=== PATIENT | male | born 1990 | race American Indian/Alaskan Native ===

== ENCOUNTER 2018-05-28 08:00 | Emergency (ER) | payer MEDICAID ==
[2018-05-28] MEDS ORDERED: Ketorolac 30 MG/ML SDV IVPUSH ONE (08:09)
[2018-05-28] MEDS ORDERED: methylPREDNISolone Sodium Succinate 125 MG/2 ML SDV IVPUSH ONE (08:09)
--- NOTE | 2018-05-28 08:11 | EDM.PDOC ---
ED HPI GENERAL MEDICAL PROBLEM - General Chief Complaint: ENT Problem Stated Complaint: SORE THROAT, CANT TALK, TROUBLE BREATHING Time Seen by Provider: 05/28/18 08:05 Source of Information: Reports: Patient History Limitations: Reports: No Limitations - History of Present Illness INITIAL COMMENTS - FREE TEXT/NARRATIVE: 28-year-old male who was had a sore throat for the last several days, intermittent fevers and cough. Last evening his throat hurt on the right side, today significant pain on the left side with swelling. He feels the back of his throat is edematous and swollen and is having trouble breathing. Onset: Gradual (Over the past several days) Improves with: Reports: None Associated Symptoms: Reports: Fever/Chills, Malaise, Shortness of Breath. Denies: Chest Pain, Cough, Nausea/Vomiting Throat Pain Score (Numeric/FACES): 10 - Related Data Allergies Allergy/AdvReac Type Severity Reaction Status Date / Time No Known Allergies Allergy Verified 05/28/18 08:15 Home Meds: Home Meds NK [No Known Home Meds] 01/02/13 [History] Past Medical History - Past Health History Medical/Surgical History: Denies Medical/Surgical History Musculoskeletal History: Reports: Fracture Other Musculoskeletal History: finger wrist - Infectious Disease History Infectious Disease History: Reports: Chicken Pox - Past Surgical History GI Surgical History: Reports: Cholecystectomy Social & Family History - Caffeine Use Caffeine Use: Reports: Soda - Living Situation & Occupation Occupation: Employed ED ROS GENERAL - Review of Systems Review Of Systems: See Below Constitutional: Reports: Fever, Malaise, Decreased Appetite HEENT: Reports: Throat Pain. Denies: Ear Pain, Rhinitis Respiratory: Reports: Shortness of Breath. Denies: Cough Cardiovascular: Denies: Chest Pain GI/Abdominal: Denies: Nausea, Vomiting Skin: Reports: No Symptoms Neurological: Denies: Headache ED EXAM, GENERAL - Physical Exam Exam: See Below Exam Limited By: No Limitations General Appearance: Alert, Mild Distress (Significant pharyngeal erythema and swelling is causing a sensation of upper airway obstruction, causing the patient to be very uncomfortable and anxious) Eye Exam: Bilateral Eye: Normal Inspection Ears: Normal TMs Throat/Mouth: Other (Diffuse significant erythema and edema of the posterior pharynx including the uvula) Head: Atraumatic Neck: Lymphadenopathy (L) (Tender adenopathy of the left submandibular area is present) Course - Vital Signs Last Recorded V/S: Last Vital Signs Temp 98.4 F 05/28/18 11:04 Pulse 103 H 05/28/18 11:04 Resp 16 05/28/18 11:04 BP 139/93 H 05/28/18 11:04 Pulse Ox 96 05/28/18 11:04 - Orders/Labs/Meds Labs: Laboratory Tests 05/28/18 05/28/18 05/28/18 Range/Units 08:10 08:10 08:10 WBC 20.3 H (4.5-11.0) K/uL RBC 5.09 (4.30-5.90) M/uL Hgb 16.5 H (12.0-15.0) g/dL Hct 48.1 (40.0-54.0) % MCV 95 (80-98) fL MCH 32 H (27-31) pg MCHC 34 (32-36) % Plt Count 365 (150-400) K/uL Neut % (Auto) 73 H (36-66) % Lymph % (Auto) 12 L (24-44) % Crosby % (Auto) 13 H (2-6) % Eos % (Auto) 1 L (2-4) % Baso % (Auto) 1 (0-1) % Sodium 137 L (140-148) mmol/L Potassium 3.5 L (3.6-5.2) mmol/L Chloride 100 (100-108) mmol/L Carbon Dioxide 23 (21-32) mmol/L Anion Gap 17.5 H (5.0-14.0) mmol/L BUN 5 L (7-18) mg/dL Creatinine 0.7 L (0.8-1.3) mg/dL Est Cr Clr Drug Dosing 169.37 mL/min Estimated GFR (MDRD) > 60 (>60) Glucose 123 H (74-106) mg/dL Calcium 8.7 (8.5-10.1) mg/dL Total Bilirubin 0.8 (0.2-1.0) mg/dL AST 102 H (15-37) U/L ALT 157 H (12-78) U/L Alkaline Phosphatase 132 H (46-116) U/L Total Protein 8.8 H (6.4-8.2) g/dL Albumin 3.4 (3.4-5.0) g/dL Globulin 5.4 H (2.3-3.5) g/dL Albumin/Globulin Ratio 0.6 L (1.2-2.2) Monoscreen Negative (NEGATIVE) Meds: Medications Discontinued Medications Generic Name Dose Route Start Last Admin Trade Name Freq PRN Reason Stop Dose Admin Sodium Chloride 1,000 mls @ 500 mls/hr 05/28/18 08:15 05/28/18 08:27 Normal Saline IV 500 mls/hr ASDIRECTED CARMELITA Administration Ampicillin Sodium/Sulbactam 100 mls @ 200 mls/hr 05/28/18 08:54 05/28/18 09: 07 Sodium 3 gm/ Sodium Chloride IV 05/28/18 09:23 200 mls/hr ONETIME ONE Administration Sodium Chloride 70 mls @ 3 mls/sec 05/28/18 10:15 05/28/18 10:13 Normal Saline IV 3 mls/sec ASDIRECTED CARMELITA Administration Iopamidol 100 ml 05/28/18 10:01 05/28/18 10:13 Isovue-300 (61%) IV 05/29/18 10:02 100 ml . DIRECTED PRN Administration RADIOLOGY EXAM Ketorolac Tromethamine 30 mg 05/28/18 08:09 05/28/18 08:29 Toradol IVPUSH 05/28/18 08:10 30 mg ONETIME ONE Administration Methylprednisolone Sodium Succinate 125 mg 05/28/18 08:09 05/28/18 08:27 Solu-Medrol IVPUSH 05/28/18 08:10 125 mg ONETIME ONE Administration Sodium Chloride 10 ml 05/28/18 10:01 05/28/18 10:12 Saline Flush FLUSH 10 ml ONETIME PRN Administration per radiology protocol - Re-Assessments/Exams Free Text/Narrative Re-Assessment/Exam: 05/28/18 09:00 CBC, CMP, Monospot and rapid strep were obtained. White count was 20,000, Monospot was negative but strep was positive. Patient was given 125 mg of IV Solu-Medrol, 3 g of IV Unasyn and 30 mg of IV Toradol. CT of the neck with contrast will be obtained to rule out significant peritonsillar abscess. 05/28/18 11:00 CT confirmed in intratonsillar abscess on the left up to 2.3 cm. This was discussed with ENT on-call in [place] and it was recommended he be seen. Patient is feeling better after the medications, he'll be transported by private car. He is going directly to [facility] emergency room where they can page Dr. Viera. Departure - Departure Time of Disposition: 11:19 Disposition: DC/Tfer to Other 70 Condition: Fair Clinical Impression: Tonsillar abscess - Discharge Information Instructions: Peritonsillar Abscess, [id number] Referrals: PCP,None [Primary Care Provider] - Forms: ED Department Discharge Care Plan Goals: Directly to the emergency room at [facility] himself [place]. Nothing to eat or drink before being seen in [place].
[2018-05-28] MEDS ORDERED: Sodium Chloride 0.9% 1,000 ML IV SCH (08:15)
[2018-05-28] MEDS ORDERED: Ampicillin/Sulbactam Na 3 GM in Sodium Chloride 0.9% 100 ML IV ONE (08:54)
[2018-05-28] MEDS ORDERED: Sodium Chloride 0.9% 10 ML Syringe FLUSH PRN (10:01)
[2018-05-28] MEDS ORDERED: Iopamidol 612 MG/ML 100 ML Bottle IV PRN (10:01)
--- NOTE | 2018-05-28 10:45 | CRLCT ---
INDICATION: Assess tonsillar abscess. TECHNIQUE: Contrast-enhanced neck CT. COMPARISON: None. FINDINGS: Asymmetrically larger left tonsil relative to the right with a bi lobed region of decreased attenuation within the left tonsil, measuring approximately 1.3 x 2.3 cm, image 25 series 3. The right tonsil is also slightly enlarged but less so without an abscess. There are numerous small bilateral cervical lymph nodes. Although not big or bulky, they may be reactive. The parotid and submandibular salivary glands are within normal limits. The included lung apices and medial clavicular heads are within normal limits. C1 through the upper aspect of T3 are within normal limits. The included paranasal sinuses and mastoid air cells are within normal limits. The included intracranial structures are grossly unremarkable. IMPRESSION: 1. Enlarged left tonsil relative to the right with an area of decreased attenuation most compatible with an intra tonsillar abscess measuring up to 2.3 cm. 2. Few mildly reactive enlarged cervical lymph nodes. 3. Clear lung apices. Normal thyroid gland. Please note that all CT scans at this facility use dose modulation, iterative reconstruction, and/or weight-based dosing when appropriate to reduce radiation dose to as low as reasonably achievable. Dictated by Efrain Cisneros MD @ May 28 2018 10:35AM Signed by Dr. Efrain Cisneros @ May 28 2018 10:43AM
[2018-05-28 11:04] VITALS: BP 139/93
== END 2018-05-28 11:19 | disposition other institution (70) ==
LOC: JP.ED 08:00
DX: J36 Peritonsillar abscess (principal)
CPT/HCPCS: 36415; 70491; 80053; 85025; 86308; 87430; 96361; 96365; 96375; 99284; J0295; J1885; J2930; J7030; Q9967

== ENCOUNTER 2019-03-20 14:14 | Emergency (ER) | payer MEDICAID ==
[2019-03-20] MEDS ORDERED: Ondansetron 4 MG/2 ML SDV IVPUSH ONE (15:06)
[2019-03-20] MEDS ORDERED: Sodium Chloride 0.9% 1,000 ML IV SCH (15:15)
--- NOTE | 2019-03-20 15:32 | EDM.PDOC ---
ED HPI GENERAL MEDICAL PROBLEM - General Chief Complaint: Gastrointestinal Problem Stated Complaint: SKIN COLOR IS YELLOW Time Seen by Provider: 03/20/19 14:45 Source of Information: Reports: Patient, Family History Limitations: Reports: No Limitations - History of Present Illness INITIAL COMMENTS - FREE TEXT/NARRATIVE: 28-year-old male, chronic alcohol abuse, presents with daily nausea and vomiting , generalized malaise, tremor, and his family thinks he looks jaundiced. No fevers or chills. Initially when he arrived he was feeling fairly good but started having emesis shortly after arrival, there was a small amount of blood in the emesis. Denies any abdominal pain. Onset: Unknown/Unsure Associated Symptoms: Reports: Loss of Appetite, Malaise, Nausea/Vomiting, Weakness. Denies: Chest Pain, Cough - Related Data Allergies Allergy/AdvReac Type Severity Reaction Status Date / Time No Known Allergies Allergy Verified 05/28/18 08:15 Home Meds: Home Meds NK [No Known Home Meds] 01/02/13 [History] Past Medical History - Past Health History Medical/Surgical History: Denies Medical/Surgical History Musculoskeletal History: Reports: Fracture Other Musculoskeletal History: finger wrist - Infectious Disease History Infectious Disease History: Reports: Chicken Pox - Past Surgical History HEENT Surgical History: Reports: Other (See Below) Other HEENT Surgeries/Procedures: Tonsilar abcess. GI Surgical History: Reports: Cholecystectomy Social & Family History - Tobacco Use Years of Tobacco use: 15 Packs/Tins Daily: 0.5 - Caffeine Use Caffeine Use: Reports: Energy Drinks, Soda Other Caffeine Use: 1 energy drink, 3 sodas. - Alcohol Use Days Per Week of Alcohol Use: 7 Number of Drinks Per Day: 7 Total Drinks Per Week: 49 Date of Last Drink: 03/20/19 - Recreational Drug Use Recreational Drug Use: No - Living Situation & Occupation Occupation: Employed ED ROS GENERAL - Review of Systems Review Of Systems: See Below Constitutional: Reports: Malaise, Decreased Appetite. Denies: Fever, Chills HEENT: Denies: Vision Change Respiratory: Denies: Shortness of Breath Cardiovascular: Denies: Chest Pain GI/Abdominal: Reports: Nausea, Vomiting. Denies: Abdominal Pain, Diarrhea Skin: Reports: Pallor Neurological: Denies: Headache Psychiatric: Reports: No Symptoms ED EXAM, GENERAL - Physical Exam Exam: See Below Exam Limited By: No Limitations General Appearance: Alert, No Apparent Distress Eye Exam: Bilateral Eye: Other (Sclera does appear pale, likely jaundiced) Respiratory/Chest: No Respiratory Distress, Lungs Clear Cardiovascular: Regular Rate, Rhythm, Tachycardia GI/Abdominal: Soft, Non-Tender Neurological: Alert, Oriented Skin Exam: Other (Skin looks pale and possibly jaundiced) Course - Vital Signs Last Recorded V/S: Last Vital Signs Temp 98.2 F 03/20/19 17:33 Pulse 118 H 03/20/19 17:33 Resp 14 03/20/19 17:33 BP 147/70 H 03/20/19 17:33 Pulse Ox 97 03/20/19 17:33 - Orders/Labs/Meds Labs: Laboratory Tests 03/20/19 03/20/19 03/20/19 Range/Units 15:30 15:30 15:30 WBC 20.8 H (4.5-11.0) K/uL RBC 3.58 L (4.30-5.90) M/uL Hgb 12.6 D (12.0-15.0) g/dL Hct 36.6 L (40.0-54.0) % MCV 102 H (80-98) fL MCH 35 H (27-31) pg MCHC 34 (32-36) % Plt Count 309 (150-400) K/uL Add Manual Diff Yes Neutrophils % (Manual) 78 H (36-66) % Band Neutrophils % 6 (5-11) % Lymphocytes % (Manual) 11 L (24-44) % Monocytes % (Manual) 3 (2-6) % Eosinophils % (Manual) 2 (2-4) % PT (9.5-12.0) sec INR (0.80-1.20) Sodium 130 L (140-148) mmol/L Potassium 3.5 L (3.6-5.2) mmol/L Chloride 91 L (100-108) mmol/L Carbon Dioxide 27 (21-32) mmol/L Anion Gap 15.5 H (5.0-14.0) mmol/L BUN 3 L (7-18) mg/dL Creatinine 0.7 L (0.8-1.3) mg/dL Est Cr Clr Drug Dosing 164.35 mL/min Estimated GFR (MDRD) > 60 (>60) Glucose 127 H (74-106) mg/dL Calcium 7.6 L (8.5-10.1) mg/dL Total Bilirubin 21.8 H D (0.2-1.0) mg/dL AST 170 H (15-37) U/L ALT 36 D (12-78) U/L Alkaline Phosphatase 208 H (46-116) U/L Total Protein 9.3 H (6.4-8.2) g/dL Albumin 1.8 L (3.4-5.0) g/dL Globulin 7.5 H (2.3-3.5) g/dL Albumin/Globulin Ratio 0.2 L (1.2-2.2) Amylase 15 L (25-115) U/L Lipase 162 (73-393) U/L Ethyl Alcohol 71 mg/dL 03/20/19 Range/Units 16:33 WBC (4.5-11.0) K/uL RBC (4.30-5.90) M/uL Hgb (12.0-15.0) g/dL Hct (40.0-54.0) % MCV (80-98) fL MCH (27-31) pg MCHC (32-36) % Plt Count (150-400) K/uL Add Manual Diff Neutrophils % (Manual) (36-66) % Band Neutrophils % (5-11) % Lymphocytes % (Manual) (24-44) % Monocytes % (Manual) (2-6) % Eosinophils % (Manual) (2-4) % PT 22.5 H (9.5-12.0) sec INR 2.18 H (0.80-1.20) Sodium (140-148) mmol/L Potassium (3.6-5.2) mmol/L Chloride (100-108) mmol/L Carbon Dioxide (21-32) mmol/L Anion Gap (5.0-14.0) mmol/L BUN (7-18) mg/dL Creatinine (0.8-1.3) mg/dL Est Cr Clr Drug Dosing mL/min Estimated GFR (MDRD) (>60) Glucose (74-106) mg/dL Calcium (8.5-10.1) mg/dL Total Bilirubin (0.2-1.0) mg/dL AST (15-37) U/L ALT (12-78) U/L Alkaline Phosphatase (46-116) U/L Total Protein (6.4-8.2) g/dL Albumin (3.4-5.0) g/dL Globulin (2.3-3.5) g/dL Albumin/Globulin Ratio (1.2-2.2) Amylase (25-115) U/L Lipase (73-393) U/L Ethyl Alcohol mg/dL Meds: Medications Discontinued Medications Generic Name Dose Route Start Last Admin Trade Name Aureliano PRN Reason Stop Dose Admin Sodium Chloride 1,000 mls @ 1,000 mls/hr 03/20/19 15:15 03/20/19 15:20 Normal Saline IV 1,000 mls/hr ASDIRECTED CARMELITA Administration Multivitamins/Minerals 10 ml/ 1,017.2 mls @ 500 mls/hr 03/20/19 17:15 17:27 Thiamine HCl 100 mg/ Folic IV 03/20/19 19:17 500 mls/hr Acid 1 mg/ Magnesium Sulfate 3 ASDIRECTED ONE Administration gm/ Sodium Chloride Ondansetron HCl 4 mg 03/20/19 15:06 03/20/19 15:18 Zofran IVPUSH 03/20/19 15:07 4 mg ONETIME ONE Administration - Re-Assessments/Exams Free Text/Narrative Re-Assessment/Exam: 03/20/19 16:31 EtOH is 0.07, bilirubin is 21.8. 03/20/19 17:09 Bilirubin level was discussed with our hospitalist service and it was recommended he be transferred to gastroenterology. After his first liter of fluid, a banana bag was initiated. INR was added, it was 2.1. Dr. Allan Arellano, emergency services at [facility] in [place] kindly agreed to accept the patient in transfer. Departure - Departure Time of Disposition: 18:19 Disposition: DC/Tfer to Other Clinical Impression: Alcoholic hepatitis Qualifiers: Ascites presence: unspecified Qualified Code(s): K70.10 - Alcoholic hepatitis without ascites - Discharge Information Referrals: PCP,None [Primary Care Provider] - Forms: ED Department Discharge Care Plan Goals: Patient will will be transferred to [facility] for gastroenterology care and evaluation for alcoholic hepatitis with severe hyperbilirubinemia. Sepsis Event Note - Evaluation Sepsis Screening Result: No Definite Risk - Focused Exam Date Exam was Performed: 03/21/19 Time Exam was Performed: 07:10
[2019-03-20] MEDS ORDERED: MVI, Adult with Vitamin K 10 ML, Thiamine 100 MG, Folic Acid 1 MG, Magnesium Sulfate 3 ... IV SCH ×5 (16:30)
[2019-03-20] MEDS ORDERED: MVI, Adult with Vitamin K 10 ML, Thiamine 100 MG, Folic Acid 1 MG, Magnesium Sulfate 3 ... IV ONE ×5 (17:15)
[2019-03-20 17:35] VITALS: BP 147/70; PULSE 118
== END 2019-03-20 18:19 | disposition other institution (70) ==
LOC: JP.ED 14:14
DX: K70.10 Alcoholic hepatitis without ascites (principal)
CPT/HCPCS: 36415; 80053; 80320; 82150; 83690; 85025; 85610; 96361; 96365; 96375; 99285; J2405; J3411; J3475; J7030; G0480; J3490

== ENCOUNTER 2019-06-24 18:09 | Emergency (ER) | payer MEDICAID ==
--- NOTE | 2019-06-24 19:09 | EDM.PDOC ---
ED HPI GENERAL MEDICAL PROBLEM - General Chief Complaint: General Stated Complaint: MEDICAL VIA [facility]TH Time Seen by Provider: 06/24/19 19:00 Source of Information: Reports: Patient History Limitations: Reports: No Limitations - History of Present Illness INITIAL COMMENTS - FREE TEXT/NARRATIVE: This is a 29-year-old male with history of alcohol use disorder, liver cirrhosis , anemia who presents with concerns of generalized pain, edema, and difficulty breathing. Is not entirely clear what acute issue brought him to the ED tonight , he presents at the urging of his significant other. He is primarily concerned of whole body pain, particularly pain in the right upper quadrant. He has some difficulty breathing which he attributes to his ascites. He has had no fevers or chills. He has whole-body edema which has been increasing, he also notes decreased urine output over the last couple weeks. He has been hospitalized intermittently in the last couple months and required blood transfusion, it is a concern of his significant other that he may need repeat transfusion tonight. The patient reports that he has been sober since March with the exception of a red wine drink last night which she thought may help his health. He reports that he has been worked up for transplant at the [facility] previously, he is not a candidate for this. - Related Data Allergies Allergy/AdvReac Type Severity Reaction Status Date / Time No Known Allergies Allergy Verified 06/24/19 18:32 Home Meds: Home Meds Folic Acid 1 mg PO DAILY 05/20/19 [History] Furosemide [Lasix] 40 mg PO BID 05/20/19 [History] Midodrine 10 mg PO TIDAC 05/20/19 [History] Potassium Chloride 20 meq PO DAILY 05/20/19 [History] Thiamine HCl 100 mg PO DAILY 05/20/19 [History] Past Medical History - Past Health History Medical/Surgical History: Denies Medical/Surgical History Musculoskeletal History: Reports: Fracture Other Musculoskeletal History: finger wrist - Infectious Disease History Infectious Disease History: Reports: Chicken Pox - Past Surgical History HEENT Surgical History: Reports: Other (See Below) Other HEENT Surgeries/Procedures: Tonsilar abcess. GI Surgical History: Reports: Cholecystectomy, Other (See Below) Other GI Surgeries/Procedures: acute liver failure Social & Family History - Caffeine Use Caffeine Use: Reports: Energy Drinks, Soda Other Caffeine Use: 1 energy drink, 3 sodas. - Living Situation & Occupation Occupation: Employed ED ROS GENERAL - Review of Systems Review Of Systems: See Below Constitutional: Reports: No Symptoms HEENT: Reports: No Symptoms Respiratory: Reports: Shortness of Breath Cardiovascular: Reports: Edema Endocrine: Reports: No Symptoms GI/Abdominal: Reports: Abdominal Pain : Reports: No Symptoms Musculoskeletal: Reports: No Symptoms Skin: Reports: No Symptoms Neurological: Reports: No Symptoms Psychiatric: Reports: No Symptoms Hematologic/Lymphatic: Reports: No Symptoms Immunologic: Reports: No Symptoms ED EXAM, GENERAL - Physical Exam Exam: See Below Exam Limited By: No Limitations General Appearance: Alert, No Apparent Distress Ears: Normal External Exam Nose: Normal Inspection Throat/Mouth: Normal Inspection Head: Atraumatic, Normocephalic Neck: Normal Inspection Respiratory/Chest: No Respiratory Distress, Lungs Clear Cardiovascular: Regular Rate, Rhythm GI/Abdominal: Soft, Distended (soft distended). No: Tender Back Exam: Normal Inspection Extremities: Pedal Edema (4+ pitting edema thoughout the extremities) Neurological: Alert, Oriented Psychiatric: Normal Affect Skin Exam: Warm, Dry Course - Vital Signs Last Recorded V/S: Last Vital Signs Temp 36.5 C 06/24/19 20:26 Pulse 116 H 06/24/19 20:19 Resp 20 06/24/19 20:19 BP 97/40 L 06/24/19 20:19 Pulse Ox 99 06/24/19 20:19 - Orders/Labs/Meds Orders: Active Orders 24 hr Category Date Time Status CXR [Chest 1V Frontal] [CR] Stat Exams 06/24/19 19:07 Taken VL Duplex Abd Pel Ret Ltd [US] Stat Exams 06/24/19 19:07 Taken RED BLOOD CELLS LP [BBK] Routine Lab 06/24/19 19:15 Results TYPE AND SCREEN [BBK] Routine Lab 06/24/19 19:15 Results Transfuse Red Blood Cells [COMM] Urgent Oth 06/24/19 19:30 Ordered Labs: Laboratory Tests 06/24/19 06/24/19 06/24/19 Range/Units 19:15 19:15 19:15 WBC 17.6 H (4.5-11.0) K/uL RBC 1.41 L (4.30-5.90) M/uL Hgb 4.9 L* D (12.0-15.0) g/dL Hct 15.7 L (40.0-54.0) % MCV 111 H (80-98) fL MCH 35 H (27-31) pg MCHC 31 L (32-36) % Plt Count 272 (150-400) K/uL PT 18.1 H (9.5-12.0) sec INR 1.73 H (0.80-1.20) Sodium 132 L (140-148) mmol/L Potassium 5.2 (3.6-5.2) mmol/L Chloride 102 (100-108) mmol/L Carbon Dioxide 19 L (21-32) mmol/L Anion Gap 16.2 H (5.0-14.0) mmol/L BUN 47 H D (7-18) mg/dL Creatinine 3.9 H* D (0.8-1.3) mg/dL Est Cr Clr Drug Dosing 29.23 mL/min Estimated GFR (MDRD) 18 L (>60) Glucose 102 (74-106) mg/dL Calcium 7.9 L (8.5-10.1) mg/dL Total Bilirubin 11.7 H (0.2-1.0) mg/dL AST 72 H (15-37) U/L ALT 28 (12-78) U/L Alkaline Phosphatase 143 H (46-116) U/L Total Protein 7.2 (6.4-8.2) g/dL Albumin 1.8 L (3.4-5.0) g/dL Globulin 5.4 H (2.3-3.5) g/dL Albumin/Globulin Ratio 0.3 L (1.2-2.2) Lipase 134 (73-393) U/L Blood Type Gel Antibody Screen Crossmatch 06/24/19 Range/Units 19:15 WBC (4.5-11.0) K/uL RBC (4.30-5.90) M/uL Hgb (12.0-15.0) g/dL Hct (40.0-54.0) % MCV (80-98) fL MCH (27-31) pg MCHC (32-36) % Plt Count (150-400) K/uL PT (9.5-12.0) sec INR (0.80-1.20) Sodium (140-148) mmol/L Potassium (3.6-5.2) mmol/L Chloride (100-108) mmol/L Carbon Dioxide (21-32) mmol/L Anion Gap (5.0-14.0) mmol/L BUN (7-18) mg/dL Creatinine (0.8-1.3) mg/dL Est Cr Clr Drug Dosing mL/min Estimated GFR (MDRD) (>60) Glucose (74-106) mg/dL Calcium (8.5-10.1) mg/dL Total Bilirubin (0.2-1.0) mg/dL AST (15-37) U/L ALT (12-78) U/L Alkaline Phosphatase (46-116) U/L Total Protein (6.4-8.2) g/dL Albumin (3.4-5.0) g/dL Globulin (2.3-3.5) g/dL Albumin/Globulin Ratio (1.2-2.2) Lipase (73-393) U/L Blood Type O POSITIVE Gel Antibody Screen Negative Crossmatch See Detail - Re-Assessments/Exams Free Text/Narrative Re-Assessment/Exam: This is a 29-year-old male with history of alcoholic liver disease who presents with concerns of body aches, whole body edema, difficulty breathing, abdominal distention. On exam he is found to be slightly hypotensive with systolic blood pressures in the 30s. He has full body pitting anasarca, and abdominal distention but minimally tender. His respiratory status is stable on room air. He is alert although he is not been taking his lactulose. Laboratory evaluation was significant for hemoglobin of 4.9. He denies any melena or hematemesis. He has a history of anemia in the past, which has required transfusions. Concern for acute bleed is low. Labs also notable for a creatinine of 3.9, up from 0.7 Ricardo. Remainder of electrolytes are stable. I am suspicious he is developing hepatorenal syndrome. Remainder of labs show elevated LFTs within recent range for this patient. Otherwise nothing terribly remarkable. Imaging shows a small right pleural effusion. Right upper quadrant imaging was obtained, formal read is pending but reportedly unremarkable with patent vasculature. I suspect the patient is not a transplant candidate given ongoing alcohol use, however I did have a long discussion with him regarding transfer back to a transplant center such as the [facility]. He is declining this. Instead we are transferring him back to [facility] for further work-up. He is being transfused 1 unit of PRBCs in the ED before leaving, but he remains hemodynamically stable. 06/24/19 21:07 Departure - Departure Time of Disposition: 21:11 Disposition: DC/Tfer to [facility] 02 Clinical Impression: Alcoholic liver disease, unspecified Renal failure Qualifiers: Renal failure chronicity: acute Acute renal failure type: unspecified Qualified Code(s): N17.9 - Acute kidney failure, unspecified Anemia Qualifiers: Anemia type: unspecified type Qualified Code(s): D64.9 - Anemia, unspecified - Discharge Information Referrals: PCP,None [Primary Care Provider] - Forms: ED Department Discharge Sepsis Event Note - Evaluation Sepsis Screening Result: No Definite Risk - Focused Exam Vital Signs: Vital Signs Temp Pulse Resp BP Pulse Ox 06/24/19 20:26 36.5 C 06/24/19 20:19 116 H 20 97/40 L 99 06/24/19 19:04 116 H 137/40 L 06/24/19 18:46 36.6 C 117 H 16 110/34 L 98 06/24/19 18:32 36.6 C 117 H 16 110/34 L 98 Date Exam was Performed: 06/24/19 Time Exam was Performed: 20:29 - My Orders Last 24 Hours: My Active Orders 06/24/19 19:07 CXR [Chest 1V Frontal] [CR] Stat VL Duplex Abd Pel Ret Ltd [US] Stat 06/24/19 19:15 RED BLOOD CELLS LP [BBK] Routine TYPE AND SCREEN [BBK] Routine 06/24/19 19:30 Transfuse Red Blood Cells [COMM] Urgent - Assessment/Plan Last 24 Hours: My Active Orders 06/24/19 19:07 CXR [Chest 1V Frontal] [CR] Stat VL Duplex Abd Pel Ret Ltd [US] Stat 06/24/19 19:15 RED BLOOD CELLS LP [BBK] Routine TYPE AND SCREEN [BBK] Routine 06/24/19 19:30 Transfuse Red Blood Cells [COMM] Urgent
--- NOTE | 2019-06-24 20:42 | CRLUS ---
INDICATION: Right upper quadrant pain TECHNIQUE: Ultrasound abdomen limited. Sonographic images of the entire abdomen were obtained using chen-scale and color Doppler. The portal veins were also evaluated. COMPARISON: None FINDINGS: Limited Doppler evaluation of the portal veins demonstrates that the main, left, and right portal vein are patent. The liver is normal. The pancreas, gallbladder, spleen, left kidney, and aorta were not well visualized due to large amount of ascites. Normal right kidney. IMPRESSION: Limited exam. The main, left, and right portal vein are patent. Large amount of ascites prevents evaluation of the pancreas, gallbladder, spleen, left kidney, and aorta. The liver and right kidney appear normal. Dictated by Justine Owens MD @ Jun 24 2019 8:31PM Signed by Dr. Justine Owens @ Jun 24 2019 8:40PM
[2019-06-24] MEDS ORDERED: oxyCODONE 5 MG Tab PO ONE (21:00)
[2019-06-24 21:47] VITALS: BP 109/43; PULSE 112
--- NOTE | 2019-06-25 09:07 | CR ---
CHEST: Portable 06/24/2019 at 07 24 CLINICAL HISTORY:Dyspnea COMPARISON:CT chest 2018 FINDINGS: There is moderate opacification in the right lung base. This is felt to be due to combination of atelectasis with possible infiltrate or consolidation as well as right effusion. There are patchy densities in the left lung base which appear to be some segmental atelectasis. IMPRESSION: Right lower lobe atelectasis with possible areas of consolidation and infiltrate. There may be a right pleural effusion. Chest CT or at least the bilateral decubitus views the chest should be performed Patchy left lower lobe densities is felt to represent some subsegmental atelectasis
== END 2019-06-24 21:57 ==
LOC: JP.ED 18:09
DX: N17.9 Acute kidney failure, unspecified (principal); D64.9 Anemia, unspecified; K70.9 Alcoholic liver disease, unspecified
CPT/HCPCS: 36415; 36430; 71045; 80053; 83690; 85027; 85610; 86850; 86900; 86901; 86920; 86922; 93976; 99285; A9270; P9016

== ENCOUNTER 2019-08-28 09:31 | Emergency (ER) | payer MEDICAID ==
[2019-08-28] MEDS ORDERED: Sodium Chloride 0.9% 1,000 ML IV ONE (09:50)
--- NOTE | 2019-08-28 09:58 | EDM.PDOC ---
ED HPI GENERAL MEDICAL PROBLEM - General Chief Complaint: General Stated Complaint: MEDICAL [facility] Time Seen by Provider: 08/28/19 09:51 Source of Information: Reports: Family, Old Records History Limitations: Reports: Altered Mental Status - History of Present Illness INITIAL COMMENTS - FREE TEXT/NARRATIVE: 29 yo male with endstage cirrhosis and who has been on hospice is brought in by EMS due to family deciding to undo previous DNR orders now that Anatoliy is not able to speak for him self. He has been getting a lot of his cares at the [facility]. Not eating lately. Not able to interact verbally on arrival. On hospice x 2 mos. Onset: Today Onset Date: 08/28/19 Duration: Minutes: Location: Reports: Generalized - Related Data Allergies Allergy/AdvReac Type Severity Reaction Status Date / Time No Known Allergies Allergy Verified 08/28/19 10:12 Home Meds: Home Meds Acetaminophen 650 mg RC ASDIRECTED PRN 07/30/19 [History] HYDROmorphone [Dilaudid 1 MG/ML Soln] 1 mg PO Q2H PRN 07/30/19 [History] LORazepam [Ativan] 0.5 mg PO Q4H PRN 07/30/19 [History] Melatonin 10 mg PO BEDTIME 07/30/19 [History] Morphine Sulfate [Morphine Sulfate ER] 15 mg PO BID 07/30/19 [History] Morphine [Morphine 20 MG/ML Soln] 10 mg PO ASDIRECTED PRN 07/30/19 [History] Prochlorperazine [Compro] 25 mg RC ASDIRECTED PRN 07/30/19 [History] Sennosides/Docusate Sodium [Dok Plus Tablet] 1 - 2 tab PO BID 07/30/19 [History] ondansetron HCL [Zofran] 4 mg PO Q8H PRN 07/30/19 [History] tiZANidine HCl [Zanaflex] 2 mg PO Q6H PRN 08/28/19 [History] Past Medical History - Past Health History Medical/Surgical History: Denies Medical/Surgical History Musculoskeletal History: Reports: Fracture Other Musculoskeletal History: finger wrist - Infectious Disease History Infectious Disease History: Reports: Chicken Pox - Past Surgical History HEENT Surgical History: Reports: Other (See Below) Other HEENT Surgeries/Procedures: Tonsilar abcess. GI Surgical History: Reports: Cholecystectomy, Other (See Below) Other GI Surgeries/Procedures: acute liver failure Social & Family History - Tobacco Use Smoking Status *Q: Unknown Ever Smoked - Caffeine Use Caffeine Use: Reports: None Other Caffeine Use: 1 energy drink, 3 sodas. - Recreational Drug Use Recreational Drug Use: No - Living Situation & Occupation Occupation: Employed ED ROS GENERAL - Review of Systems Review Of Systems: Comprehensive ROS is negative, except as noted in HPI. Constitutional: Reports: Malaise, Weakness, Decreased Appetite HEENT: Reports: Other (chronic scleral icterus) GI/Abdominal: Reports: Other (ascites, not new). Denies: Constipation : Reports: Other (oliguria) Neurological: Reports: Confusion ED EXAM, GENERAL - Physical Exam Exam: See Below Exam Limited By: Altered Mental Status General Appearance: Obtunded Eye Exam: Bilateral Eye: Other (scleral icterus) Ears: Normal External Exam, Normal Canal, Normal TMs Ear Exam: Bilateral Ear: Auricle Normal, Canal Normal Nose: Normal Inspection, No Blood Throat/Mouth: Other (dry oral mucosa, poor oral hygiene) Head: Atraumatic, Normocephalic Neck: Normal Inspection Respiratory/Chest: No Respiratory Distress, Lungs Clear, Normal Breath Sounds, No Accessory Muscle Use, Other (tachypnea) Cardiovascular: Regular Rate, Rhythm, Tachycardia, Other (anasarca of both LE's) GI/Abdominal: Distended (ascites). No: No Distention, Tender Neurological: Unresponsive. No: Alert, Oriented, Normal Cognition Psychiatric: Flat Affect Skin Exam: Warm, Dry, Intact, Other (decubiti of anal area, jaundice). No: Diaphoretic, Ecchymosis, Increased Warmth, Lymphangitis Course - Vital Signs Text/Narrative:: [facility] called @ 1000h, Dr. Kaity Egan re: Mr. Kenny. [facility] gastroenterology called @ 1120h Dr. Marcum called @ 1130h, requests transfer. Family updated several times after each phone consultation. Critical care time est at 67 min. Last Recorded V/S: Last Vital Signs Temp 36.3 C 08/28/19 10:17 Pulse 128 H 08/28/19 10:17 Resp 33 H 08/28/19 10:41 BP 127/42 L 08/28/19 10:41 Pulse Ox 99 08/28/19 10:17 - Orders/Labs/Meds Orders: Active Orders 24 hr Category Date Time Status Cardiac Monitoring [RC] .As Directed Care 08/28/19 09:50 Active Chauhan Catheter Insertion [Insert Urinary Catheter] [OM. Care 08/28/19 10:00 Ordered PC] Q24H Gastric Occult/pH Collection D [RC] ASDIRECTED Care 08/28/19 12:04 Active Urinary Catheter Assessment [RC] ASDIRECTED Care 08/28/19 09:49 Active CULTURE BLOOD [BC] Stat Lab 08/28/19 11:40 Received CULTURE BLOOD [BC] Stat Lab 08/28/19 11:45 Received Hemoccult [OCCULT BLOOD DIAGNOSTIC] [OP] Stat Lab 08/28/19 10:36 Ordered UA W/MICROSCOPIC [URIN] Stat Lab 08/28/19 09:49 Ordered Lactulose [Chronulac] Med 08/28/19 12:30 Once 20 gm NGTUBE ONETIME ONE Blood Transfusion Reflex Set [OM.PC] Routine Oth 08/28/19 11:35 Ordered Nasogastric Orogastric Tube Insertion [OM.PC] Routine Oth 08/28/19 12:19 Ordered Transfuse Red Blood Cells [COMM] Urgent Oth 08/28/19 11:35 Ordered Labs: Laboratory Tests 08/28/19 08/28/19 08/28/19 Range/Units 10:07 10:07 10:07 WBC 14.0 H (4.5-11.0) K/uL RBC 1.88 L (4.30-5.90) M/uL Hgb 5.9 L* (12.0-15.0) g/dL Hct 20.5 L (40.0-54.0) % MCV 109 H (80-98) fL MCH 31 (27-31) pg MCHC 29 L (32-36) % Plt Count 238 (150-400) K/uL Sodium 139 L (140-148) mmol/L Potassium 3.8 (3.6-5.2) mmol/L Chloride 100 (100-108) mmol/L Carbon Dioxide 23 (21-32) mmol/L Anion Gap 19.8 H (5.0-14.0) mmol/L BUN 61 H (7-18) mg/dL Creatinine 3.4 H (0.8-1.3) mg/dL Est Cr Clr Drug Dosing TNP Estimated GFR (MDRD) 21 L (>60) Glucose 79 (74-106) mg/dL Lactic Acid (0.4-2.0) mmol/L Calcium 8.3 L (8.5-10.1) mg/dL Total Bilirubin 8.3 H (0.2-1.0) mg/dL AST 108 H (15-37) U/L ALT 41 (12-78) U/L Alkaline Phosphatase 131 H (46-116) U/L Ammonia 140 H (11-32) mmol/L Total Protein 9.1 H (6.4-8.2) g/dL Albumin 1.9 L (3.4-5.0) g/dL Globulin 7.2 H (2.3-3.5) g/dL Albumin/Globulin Ratio 0.3 L (1.2-2.2) Blood Type Gel Antibody Screen 08/28/19 08/28/19 Range/Units 11:31 11:35 WBC (4.5-11.0) K/uL RBC (4.30-5.90) M/uL Hgb (12.0-15.0) g/dL Hct (40.0-54.0) % MCV (80-98) fL MCH (27-31) pg MCHC (32-36) % Plt Count (150-400) K/uL Sodium (140-148) mmol/L Potassium (3.6-5.2) mmol/L Chloride (100-108) mmol/L Carbon Dioxide (21-32) mmol/L Anion Gap (5.0-14.0) mmol/L BUN (7-18) mg/dL Creatinine (0.8-1.3) mg/dL Est Cr Clr Drug Dosing Estimated GFR (MDRD) (>60) Glucose (74-106) mg/dL Lactic Acid 9.4 H (0.4-2.0) mmol/L Calcium (8.5-10.1) mg/dL Total Bilirubin (0.2-1.0) mg/dL AST (15-37) U/L ALT (12-78) U/L Alkaline Phosphatase (46-116) U/L Ammonia (11-32) mmol/L Total Protein (6.4-8.2) g/dL Albumin (3.4-5.0) g/dL Globulin (2.3-3.5) g/dL Albumin/Globulin Ratio (1.2-2.2) Blood Type O POSITIVE Gel Antibody Screen Negative Meds: Medications Discontinued Medications Generic Name Dose Route Start Last Admin Trade Name Freq PRN Reason Stop Dose Admin Sodium Chloride 1,000 mls @ 1,000 mls/hr 08/28/19 09:50 08/28/19 10:23 Normal Saline IV 08/28/19 10:49 1,000 mls/hr .BOLUS ONE Administration Lactated Ringer's 1,000 mls @ 1,000 mls/hr 08/28/19 11:28 08/28/19 11:41 Ringers, Lactated IV 08/28/19 12:27 1,000 mls/hr BOLUS ONE Administration Ceftriaxone Sodium 1 gm/ 50 mls @ 100 mls/hr 08/28/19 11:59 Sodium Chloride IV 08/28/19 12:28 ONETIME ONE Lactulose 200 gm 08/28/19 10:50 08/28/19 11:12 Chronulac RECTAL 08/28/19 10:51 200 gm ONETIME ONE Administration Morphine Sulfate 4 mg 08/28/19 10:17 08/28/19 10:25 Morphine IVPUSH 08/28/19 10:18 4 mg ONETIME ONE Administration Pantoprazole Sodium 40 mg 08/28/19 12:04 08/28/19 12:20 Protonix Iv IVPUSH 08/28/19 12:05 40 mg ONETIME ONE Administration Departure - Departure Time of Disposition: 12:55 Disposition: DC/Tfer to Acute Hospital 02 Condition: Critical Clinical Impression: Hepatic encephalopathy, Dehydration, Hepatorenal syndrome, UGI bleed Anemia Qualifiers: Anemia type: unspecified type Qualified Code(s): D64.9 - Anemia, unspecified Alcoholic cirrhosis of liver Qualifiers: Ascites presence: with ascites Qualified Code(s): K70.31 - Alcoholic cirrhosis of liver with ascites - Discharge Information *PRESCRIPTION DRUG MONITORING PROGRAM REVIEWED*: Not Applicable *COPY OF PRESCRIPTION DRUG MONITORING REPORT IN PATIENT CHRIST: Not Applicable Referrals: PCP,None [Primary Care Provider] - Forms: ED Department Discharge Sepsis Event Note - Focused Exam Vital Signs: Vital Signs Temp Pulse Resp BP Pulse Ox 08/28/19 10:41 33 H 127/42 L 08/28/19 10:17 36.3 C 128 H 28 H 132/43 L 99 Date Exam was Performed: 08/28/19 Time Exam was Performed: 12:30 - My Orders Last 24 Hours: My Active Orders 08/28/19 09:49 Urinary Catheter Assessment [RC] ASDIRECTED UA W/MICROSCOPIC [URIN] Stat 08/28/19 09:50 Cardiac Monitoring [RC] .As Directed 08/28/19 10:00 Chauhan Catheter Insertion [Insert Urinary Catheter] [OM.PC] Q24H 08/28/19 10:36 Hemoccult [OCCULT BLOOD DIAGNOSTIC] [OP] Stat 08/28/19 11:35 Blood Transfusion Reflex Set [OM.PC] Routine Transfuse Red Blood Cells [COMM] Urgent 08/28/19 11:40 CULTURE BLOOD [BC] Stat 08/28/19 11:45 CULTURE BLOOD [BC] Stat 08/28/19 12:04 Gastric Occult/pH Collection D [RC] ASDIRECTED 08/28/19 12:19 Nasogastric Orogastric Tube Insertion [OM.PC] Routine 08/28/19 12:30 Lactulose [Chronulac] 20 gm NGTUBE ONETIME ONE - Assessment/Plan Last 24 Hours: My Active Orders 08/28/19 09:49 Urinary Catheter Assessment [RC] ASDIRECTED UA W/MICROSCOPIC [URIN] Stat 08/28/19 09:50 Cardiac Monitoring [RC] .As Directed 08/28/19 10:00 Chauhan Catheter Insertion [Insert Urinary Catheter] [OM.PC] Q24H 08/28/19 10:36 Hemoccult [OCCULT BLOOD DIAGNOSTIC] [OP] Stat 08/28/19 11:35 Blood Transfusion Reflex Set [OM.PC] Routine Transfuse Red Blood Cells [COMM] Urgent 08/28/19 11:40 CULTURE BLOOD [BC] Stat 08/28/19 11:45 CULTURE BLOOD [BC] Stat 08/28/19 12:04 Gastric Occult/pH Collection D [RC] ASDIRECTED 08/28/19 12:19 Nasogastric Orogastric Tube Insertion [OM.PC] Routine 08/28/19 12:30 Lactulose [Chronulac] 20 gm NGTUBE ONETIME ONE
[2019-08-28] MEDS ORDERED: Morphine 4 MG/ML Syringe IVPUSH ONE (10:17)
[2019-08-28 10:18] VITALS: PULSE 128
[2019-08-28] MEDS ORDERED: Lactulose Soln 10 GM/15 ML ML 473 ML Bottle RECTAL ONE ×2 (10:35→10:50)
[2019-08-28] MEDS ORDERED: Lactated Ringers 1,000 ML IV ONE (11:28)
[2019-08-28] MEDS ORDERED: cefTRIAXone 1 GM in Sodium Chloride 0.9% 50 ML IV ONE ×2 (11:59→12:45)
[2019-08-28] MEDS ORDERED: Pantoprazole 40 MG Vial IVPUSH ONE (12:04)
[2019-08-28] MEDS ORDERED: Lactulose Soln 10 GM/15 ML 15 ML UD Cup NGTUBE ONE (12:30)
[2019-08-28] MEDS ORDERED: Sodium Chloride 0.9% 1,000 ML IV SCH (13:00)
[2019-08-28 14:02] VITALS: BP 101/37
== END 2019-08-28 13:35 ==
LOC: JP.ED 09:31
DX: K72.90 Hepatic failure, unspecified without coma (principal); K92.2 Gastrointestinal hemorrhage, unspecified; E86.0 Dehydration; K76.7 Hepatorenal syndrome; D64.9 Anemia, unspecified; K70.31 Alcoholic cirrhosis of liver with ascites; Z79.899 Other long term (current) drug therapy
CPT/HCPCS: 36415; 43762; 51702; 80053; 82140; 83605; 85027; 86850; 86900; 86901; 87040; 87077; 87186; 96361; 96365; 96375; 99285; A9270; C9113; J0696; J2270; J7030; J7050; J7120; 99291